=== PATIENT | male | born 1995 | race American Indian/Alaskan Native ===

== ENCOUNTER 2021-07-17 14:55 | Emergency (ER) | payer SELFPAY ==
[2021-07-17 16:10] VITALS: BP 133/60
== END 2021-07-17 18:30 | disposition left against medical advice (07) ==
LOC: ED 14:55
DX: S09.93XA Unspecified injury of face, initial encounter (principal); Z53.21 Procedure and treatment not carried out due to patient leaving prior to being seen by health care provider; X58.XXXA Exposure to other specified factors, initial encounter; Y93.89 Activity, other specified; Y92.89 Other specified places as the place of occurrence of the external cause; Y99.8 Other external cause status